=== PATIENT | male | born 1985 | race Caucasian/White ===

== ENCOUNTER 2017-08-28 17:56 | Inpatient (IN) | payer OTHER ==
[~2017-08-28] VITALS: Ht 172.7 cm; Wt 87.5 kg
[2017-08-28] MEDS ORDERED: IV NORMAL SALINE 1000ML BAG 1,000 ML IV ONE (18:00)
[2017-08-28 18:18] LABS: BASO # 0.1 x10^3/uL (0.0-0.2); BASO % 0 % (0-3); EOS % 3 % (0-3); HEMATOCRIT 43.4 % (39.0-53.0); HEMOGLOBIN 14.7 g/dL (13.0-17.5); LYMPH # 1.9 x10^3/uL (1.0-4.8); LYMPH % 14 % (24-48); MEAN CORPUSCULAR HEMOGLOBIN 31 pg (25-35); MEAN CORPUSCULAR HGB CONC 34 g/dL (31-37); MEAN CORPUSCULAR VOLUME 91 fL (79-100); MONO % 6 % (0-9); NEUT % 76 % (31-73); PLATELET COUNT 273 x10^3/uL (140-400); RED BLOOD COUNT 4.76 x10^6/uL (4.30-5.70); RED CELL DISTRIBUTION WIDTH 13.7 % (11.5-14.5); WHITE BLOOD COUNT 13.5 x10^3/uL (4.0-11.0)
[2017-08-28 18:31] LABS: CALCIUM 9.4 mg/dL (8.5-10.1); CREATININE 1.1 mg/dL (0.7-1.3); GFR 77.1; POTASSIUM 3.3 mmol/L (3.5-5.1)
[2017-08-28 18:37] LABS: ALBUMIN 3.9 g/dL (3.4-5.0); TOTAL BILIRUBIN 0.5 mg/dL (0.2-1.0); TOTAL PROTEIN 7.7 g/dL (6.4-8.2)
[2017-08-28] MEDS ORDERED: CONTRAST GIVEN MC PRN ×2 (18:45→19:15)
[2017-08-28] MEDS ORDERED: IOHEXOL 350 MG/ML 100 ML VIAL. IV ONE (18:45)
--- NOTE | 2017-08-28 18:49 | EKG ---
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
[2017-08-28] MEDS ORDERED: IOHEXOL 300 MG/ML 75 ML VIAL IV ONE (19:15)
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
--- NOTE | 2017-08-28 19:56 | RAD ---
CT pulmonary angiogram with intravenous contrast History: Chest pain Comparison: None. Technique: CT pulmonary angiogram of the chest with attention to the pulmonary arteries was performed after the administration of intravenous contrast, 75 mL Omnipaque-300. Axial 2-D reconstructions were obtained. Coronal 3-D MIPS were obtained of the pulmonary arterial vasculature of the chest. Exposure: One or more of the following individualized dose reduction techniques were utilized for this examination: 1. Automated exposure control 2. Adjustment of the mA and/or kV according to patient size 3. Use of iterative reconstruction technique Findings: Pulmonary arteries are adequately opacified. There is no evidence of pulmonary embolism. Trachea and mainstem bronchi appear patent. Visualized thyroid appears symmetric. No acute airspace disease is identified. No pneumothorax or pleural effusion is seen. No mediastinal lymphadenopathy is seen. Thoracic aorta has normal caliber. Heart and pericardium are unremarkable. Images of the upper abdomen demonstrate cholecystectomy clips. Fatty liver disease is seen. Bilateral nonobstructive nephrolithiasis is suspected. Impression: 1. No evidence of pulmonary embolism. No acute abnormality identified in the chest. Electronically signed by: Jeferson Arvizu MD (08/28/2017 7:53 PM) [facility]
[2017-08-28 20:10] LABS: BARBITURATES NEG (NEG); BENZODIAZEPINES NEG (NEG); CANNABINOIDS NEG (NEG); COCAINE NEG (NEG); METHADONE NEG (NEG); OPIATES NEG (NEG); PHENCYCLIDINE NEG (NEG)
[2017-08-28] MEDS ORDERED: ONDANSETRON PF 4 MG/2 ML VIAL. IV PRN (20:30)
[2017-08-28] MEDS ORDERED: ACETAMINOPHEN 325 MG TABLET. PO PRN (20:30)
[2017-08-28] MEDS ORDERED: NITROGLYCERIN SUBLINGUAL 0.4 MG BOTTLE OF 25. SL PRN (20:30)
[2017-08-28 21:22] VITALS: BP 117/76
[2017-08-28] MEDS ORDERED: ALBUTEROL SULFATE 2.5 MG/3 ML NEBU. NEB PRN (22:15)
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
[2017-08-28] MEDS ORDERED: IBUPROFEN 600 MG TABLET. PO PRN (22:30)
[2017-08-28] MEDS ORDERED: oxyCODONE/APAP 5/325 1 TAB TABLET PO PRN (22:30)
[2017-08-28 23:00] VITALS: BP 115/72
[2017-08-28] MEDS ORDERED: LIDOCAINE (700MG/PATCH) PATCH. TD ONE (23:00)
[2017-08-28] MEDS ORDERED: POTASSIUM CHLORIDE 20 MEQ TABLET.ER. PO ONE (23:00)
[2017-08-28] MEDS ORDERED: BUDESONIDE 0.5 MG/2 ML NEBU. NEB ONE (23:00)
[2017-08-29 02:30] LABS: BASO % 1 % (0-3); EOS % 5 % (0-3); HEMATOCRIT 43.7 % (39.0-53.0); HEMOGLOBIN 14.7 g/dL (13.0-17.5); LYMPH # 3.3 x10^3/uL (1.0-4.8); LYMPH % 35 % (24-48); MEAN CORPUSCULAR HEMOGLOBIN 31 pg (25-35); MEAN CORPUSCULAR HGB CONC 34 g/dL (31-37); MEAN CORPUSCULAR VOLUME 92 fL (79-100); MONO % 9 % (0-9); NEUT % 50 % (31-73); PLATELET COUNT 265 x10^3/uL (140-400); RED BLOOD COUNT 4.75 x10^6/uL (4.30-5.70); WHITE BLOOD COUNT 9.4 x10^3/uL (4.0-11.0)
[2017-08-29 02:41] LABS: CALCIUM 8.6 mg/dL (8.5-10.1); CREATININE 0.9 mg/dL (0.7-1.3); GFR 97.2; POTASSIUM 4.1 mmol/L (3.5-5.1)
[2017-08-29 03:13] VITALS: BP 113/78
[2017-08-29 07:30] VITALS: BP 115/70
[2017-08-29] MEDS: ALBUTEROL SULFATE 2.5 MG/3 ML NEBU. NEB SCH ×3 (07:52→15:24)
[2017-08-29] MEDS ORDERED: BUDESONIDE 0.5 MG/2 ML NEBU. NEB SCH (08:00)
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
[2017-08-29 10:25] LABS: CHOLESTEROL/HDL RATIO 4.6
[2017-08-29 10:30] VITALS: BP 125/76
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
[2017-08-29 15:30] VITALS: BP_SYST 0; BP_SYST 13; BP_DIAS 61
[2017-08-29] MEDS ORDERED: IBUP-1060 PO (15:59)
[2017-08-29] MEDS ORDERED: PROAIR HFA8.5 GM INH (15:59)
--- NOTE | 2017-08-29 16:07 | CARD ---
APPROVED REPORT EXAM: Two-dimensional and M-mode echocardiogram with Doppler and color Doppler. Other Information Quality : Average Rhythm : NSR INDICATION Chest Pain 2D DIMENSIONS RVDd3.0 (2.9-3.5cm)Left Atrium(2D)3.3 (1.6-4.0cm) IVSd0.9 (0.7-1.1cm)Aortic Root(2D)3.1 (2.0-3.7cm) LVDd5.5 (3.9-5.9cm)LVOT Diameter2.4 (1.8-2.4cm) PWd0.9 (0.7-1.1cm)LVDs2.9 (2.5-4.0cm) FS (%) 47.1 %SV113.9 ml LVEF(%)77.9 (>50%) Aortic Valve AoV Peak Marvel.157.4cm/sAoV VTI26.8cm AO Peak GR.9.9mmHgLVOT Peak Marvel.88.3cm/s LVOT VTI 18.57cmAO Mean GR.6mmHg MARIXA (VMAX)2.47yt7ZWP (VTI)3.06cm2 AI P 1/2 Qqei729ht Mitral Valve MV E Apetheyd51.2cm/sMV DECEL [id number] MV A Wbmtrzis42.7cm/sMV PKW44bj E/A Ratio2.6MV A Xtfquamm92aj MVA (PHT)3.77cm2 TDI E/Lateral E'5.1E/Medial E'8.8 Pulmonary Valve PV Peak Ddercprs76.6cm/sPV Peak Grad.3mmHg RVOT VTI16.9cm Tricuspid Valve TR P. Zehvevuc991qw/sRAP QTQPUNMX6esYy TR Peak Gr.63tkHiIQPX53wiRf Pulmonary Vein S1 Vctbhcxm70.6cm/sD2 Ldqgulll29.9cm/s LEFT VENTRICLE The left ventricle is normal size. There is normal left ventricular wall thickness. Left ventricle sy stolic function is normal. The Ejection Fraction is 65-70%. There is normal LV segmental wall motion. The left ventricular diastolic function and filling is normal for age. There is no ventricular septa l defect visualized. RIGHT VENTRICLE The right ventricle is normal size. The right ventricular systolic function is normal. ATRIA The left atrium size is normal. The right atrium size is normal. The interatrial septum is intact wit h no evidence for an atrial septal defect or patent foramen ovale as noted on 2-D or Doppler imaging. AORTIC VALVE The aortic valve is bicuspid. Doppler and Color Flow revealed mild to moderate eccentric aortic regur gitation. There is no significant aortic valvular stenosis. MITRAL VALVE The mitral valve is normal in structure and function. There is no mitral valve stenosis. Doppler and Color Flow revealed no mitral valve regurgitation noted. TRICUSPID VALVE The tricuspid valve is normal in structure and function. Doppler and Color Flow revealed trace to mil d tricuspid regurgitation. The PA pressure was estimated at 33 mmHg. There is no tricuspid valve sten osis. PULMONIC VALVE The pulmonic valve is not well visualized. Doppler and Color Flow revealed trace to mild pulmonic kristina vular regurgitation. There is no pulmonic valvular stenosis. GREAT VESSELS The aortic root is normal in size. The ascending aorta is normal in size. Normal pulmonary venous omar w (Doppler). The IVC is normal in size and collapses >50% with inspiration. PERICARDIAL EFFUSION There is no evidence of significant pericardial effusion. Critical Notification Critical Value: No <Conclusion> Left ventricle systolic function is normal. The Ejection Fraction is 65-70%. There is normal LV segmental wall motion. *The aortic valve is bicuspid. Mild to moderate eccentric aortic regurgitation. Trace to mild tricuspid regurgitation. The PA pressure was estimated at 33 mmHg. There is no evidence of significant pericardial effusion.
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
== END 2017-08-29 17:45 | disposition home or self-care (01) | DRG 206 ==
LOC: ER 17:56 → 5 NORTH 20:14
PROVIDERS: ADMIT Internal Medicine; ATTEND Internal Medicine
DX: M94.0 Chondrocostal junction syndrome [Tietze] (principal); S06.0X9A Concussion with loss of consciousness of unspecified duration, initial encounter; E87.6 Hypokalemia; S33.5XXA Sprain of ligaments of lumbar spine, initial encounter; F15.10 Other stimulant abuse, uncomplicated; J45.909 Unspecified asthma, uncomplicated; F17.210 Nicotine dependence, cigarettes, uncomplicated; F41.9 Anxiety disorder, unspecified; G89.29 Other chronic pain; M54.16 Radiculopathy, lumbar region; Z90.49 Acquired absence of other specified parts of digestive tract; Z88.1 Allergy status to other antibiotic agents; Z88.8 Allergy status to other drugs, medicaments and biological substances
CPT/HCPCS: 36415; 71275; 80048; 80053; 80061; 80307; 84484; 85025; 93005; 93306; 94640; 96360; J7030; J7613; J7626; Q9967; 99285-25; G0479

== ENCOUNTER → 2020-03-02 | Outpatient (CLI) | payer MEDICAID, OTHER ==
[2017-08-29 15:30] VITALS: BP 0/61
[~2020-03-02] MED LIST: ALBU2.5V8 INH; IBUP-1060 PO
--- NOTE | 2020-03-02 14:10 | RAD ---
2 view right shoulder study Clinical indications: Unspecified dislocation of the right shoulder. FINDINGS: There is inferior subluxation of the humeral head with respect to the glenoid fossa. There is a horizontal fracture of the inferior pole of the right scapula. The inferior segment is displaced anteriorly by 6 mm. There is healing periosteal reaction involving the upper aspect of the right scapula as well. No AC joint separation is seen. No lytic process is evident. IMPRESSION: Fracture of the inferior pole of the right scapula. There is additional healing periosteal reaction of the upper aspect of the right scapula. This latter finding may be seen with a subacute fracture. Inferior subluxation of the humeral head with respect to the glenoid fossa. Electronically signed by: Zacarias Bennett MD (03/02/2020 2:07 PM) [id number]
== END | disposition home or self-care (01) ==
LOC: RAD 12:52
PROVIDERS: ATTEND Nurse Practitioner Family
DX: S42.191A Fracture of other part of scapula, right shoulder, initial encounter for closed fracture (principal); S43.031A Inferior subluxation of right humerus, initial encounter; X58.XXXA Exposure to other specified factors, initial encounter; Y93.89 Activity, other specified; Y92.89 Other specified places as the place of occurrence of the external cause; Y99.8 Other external cause status
CPT/HCPCS: 73030